=== PATIENT | male | born 1950 | race Caucasian/White ===

== ENCOUNTER 2023-01-03 01:47 | Emergency (ER) | payer OTHER ==
[~2023-01-03] VITALS: Ht 177.8 cm; Wt 74.8 kg
[2023-01-03 02:25] LABS: BASOPHILS ABSOLUTE AUTO 0.18 K/mm3 (0.00-0.23); BASOPHILS PERCENT AUTO 1 % (0-2); EOSINOPHILS ABSOLUTE AUTO 0.19 K/mm3 (0.00-0.68); EOSINOPHILS PERCENT AUTO 1 % (0-6); Hematocrit 39.6 % (37.0-53.0); Hemoglobin 12.6 g/dL (13.5-17.5); IMMATURE GRAN ABSOLUTE AUTO 0.33 K/mm3 (0.00-0.10); IMMATURE GRAN PERCENT AUTO 1 % (0-1); LYMPHOCYTES ABSOLUTE AUTO 2.08 K/mm3 (0.84-5.20); LYMPHOCYTES PERCENT AUTO 6 % (21-46); MONOCYTES ABSOLUTE AUTO 0.97 K/mm3 (0.16-1.47); MONOCYTES PERCENT AUTO 3 % (4-13); Mean Corpuscular HGB 32.1 pg (26.0-34.0); Mean Corpuscular HGB Conc 31.8 g/dL (31.5-36.5); Mean Corpuscular Volume 101 fL (80-100); Mean Platelet Volume 9.8 fL (9.1-12.4); NEUTROPHILS ABSOLUTE AUTO 31.43 K/mm3 (1.96-9.15); NEUTROPHILS PERCENT AUTO 89 % (41-73); Platelet Count 277 K/mm3 (150-400); RDW Coefficient Variation 15.8 % (11.7-14.2); RDW Standard Deviation 58.4 fL (35.1-46.3); Red Blood Cell Count 3.92 M/mm3 (4.30-5.90); White Blood Cell Count 35.18 K/mm3 (4.00-11.30)
[2023-01-03 02:32] LABS: Albumin, Blood 3.5 g/dL (3.4-5.0); Albumin/Globulin Ratio 0.8 (0.8-1.8); Bilirubin, Total 0.2 mg/dL (0.1-1.0); Bun/Creatinine Ratio 18.9 (12.0-20.0); Calcium, Blood 9.2 mg/dL (8.5-10.1); Creatinine, Blood 0.95 mg/dL (0.60-1.20); Globulin, Blood 4.5 g/dL (2.2-4.0)
[2023-01-03 03:27] LABS: Bicarbonate Venous 31.9 mmol/L (24.0-30.0); PCO2 Venous 71.7 mmHg (38-42); pH Blood Venous 7.32 (7.34-7.37)
[2023-01-03 03:27] LABS: Magnesium, Blood 2.1 mg/dL (1.6-2.4); Phosphorus, Blood 2.3 mg/dL (2.5-4.9); Thyroid Stimulating Hormone 23.4 uIU/mL (0.360-4.800)
[2023-01-03 05:31] VITALS: BP 130/62
== END 2023-01-03 05:45 | disposition left against medical advice (07) ==
LOC: ER 01:47
PROVIDERS: Emergency Medicine
DX: J15.9 Unspecified bacterial pneumonia (principal); R79.1 Abnormal coagulation profile; E86.0 Dehydration; D72.829 Elevated white blood cell count, unspecified; F17.200 Nicotine dependence, unspecified, uncomplicated; Z59.00 Homelessness unspecified; C34.90 Malignant neoplasm of unspecified part of unspecified bronchus or lung
CPT/HCPCS: 71046; 71260; 80053; 82803; 83605; 83735; 84100; 84443; 84484; 85025; 85379; 93005; 93010; 94640; 94664; 96365; 99284-25; J0696; J7030; Q9967

== ENCOUNTER 2023-01-03 06:01 | Emergency (ER) | payer OTHER | END 2023-01-03 06:19 | disposition left against medical advice (07) | LOC: ER 06:01 | DX: R06.00 Dyspnea, unspecified (principal); Z53.21 Procedure and treatment not carried out due to patient leaving prior to being seen by health care provider | CPT/HCPCS: 99281 ==

== ENCOUNTER 2023-01-03 17:14 | Emergency (ER) | payer OTHER | END 2023-01-03 19:58 | disposition left against medical advice (07) | LOC: ER 17:14 | DX: R06.00 Dyspnea, unspecified (principal); Z53.29 Procedure and treatment not carried out because of patient's decision for other reasons | CPT/HCPCS: 99281 ==

== ENCOUNTER 2023-01-03 23:26 | Emergency (ER) | payer OTHER ==
[~2023-01-03] VITALS: Ht 177.8 cm; Wt 72.6 kg
[2023-01-03 23:48] VITALS: BP 122/69
== END 2023-01-04 07:20 | disposition home or self-care (01) ==
LOC: ER 23:26
DX: S63.91XA Sprain of unspecified part of right wrist and hand, initial encounter (principal); W01.10XA Fall on same level from slipping, tripping and stumbling with subsequent striking against unspecified object, initial encounter
CPT/HCPCS: 73130; 99283-25

== ENCOUNTER 2023-01-07 14:45 | Observation (INO) | payer OTHER ==
[~2023-01-07] VITALS: Ht 177.8 cm; Wt 58.0 kg
[2023-01-07 18:47] LABS: Hematocrit 36.9 % (37.0-53.0); Hemoglobin 11.5 g/dL (13.5-17.5); Mean Corpuscular HGB 31.9 pg (26.0-34.0); Mean Corpuscular HGB Conc 31.2 g/dL (31.5-36.5); Mean Corpuscular Volume 103 fL (80-100); Mean Platelet Volume 9.3 fL (9.1-12.4); Platelet Count 217 K/mm3 (150-400); RDW Coefficient Variation 16.2 % (11.7-14.2); RDW Standard Deviation 61.7 fL (35.1-46.3); White Blood Cell Count 38.89 K/mm3 (4.00-11.30)
[2023-01-07 19:24] LABS: Influenza A, PCR NEGATIVE (NEGATIVE); Influenza B, PCR NEGATIVE (NEGATIVE); Resp Syncytial Virus, PCR NEGATIVE (NEGATIVE); SARS-Cov-2 (COVID-19) PCR, MMC NEGATIVE (NEGATIVE)
[2023-01-07 19:33] LABS: BASOPHILS PERCENT MAN 0 % (0-2); EOSINOPHILS ABSOLUTE MAN 0.38 K/mm3 (0.00-0.68); EOSINOPHILS PERCENT MAN 1 % (0-6); LYMPHOCYTES ABSOLUTE MAN 3.88 K/mm3 (0.84-5.20); LYMPHOCYTES PERCENT MAN 10 % (21-46); MONOCYTES ABSOLUTE MAN 1.94 K/mm3 (0.16-1.47); MONOCYTES PERCENT MAN 5 % (4-13); NEUTROPHILS ABSOLUTE MAN 32.66 K/mm3 (1.96-9.15); SEG NEUTROPHILS PERCENT MAN 84 % (41-73); TOTAL CELLS COUNTED 100
[2023-01-07 20:22] LABS: Magnesium, Blood 2.2 mg/dL (1.6-2.4)
[2023-01-07 20:26] LABS: Alanine Aminotransfer (ALT/SGP 15 U/L (12-78); Albumin, Blood 3.1 g/dL (3.4-5.0); Albumin/Globulin Ratio 0.8 (0.8-1.8); Alk Phos 211 U/L (50-136); Anion Gap Unable to Calculate mmol/L (6-16); Aspartate Aminotrans (AST/SGOT 15 U/L (12-37); Bilirubin, Total 0.2 mg/dL (0.1-1.0); Blood Urea Nitrogen 16 mg/dL (8-24); Bun/Creatinine Ratio 18.8 (12.0-20.0); CO2, Blood 40 mmol/L (21-32); Calcium, Blood 8.7 mg/dL (8.5-10.1); Chloride, Blood 104 mmol/L (98-108); Creatinine, Blood 0.85 mg/dL (0.60-1.20); Globulin, Blood 4.1 g/dL (2.2-4.0); Glomerular Filtration Rate 93 (60-); Glucose, Blood 127 mg/dL (70-99); Potassium, Blood 4.2 mmol/L (3.5-5.5); Sodium, Blood 142 mmol/L (136-145); Total Protein, Blood 7.2 g/dL (6.4-8.2)
[2023-01-07 22:48] LABS: Free Thyroxine 0.59 ng/dL (0.70-1.60)
[2023-01-07 23:48] LABS: Base Excess Venous 11.1 mmol/L; Bicarbonate Venous 33.7 mmol/L (24.0-30.0); PCO2 Venous 45.5 mmHg (38-42); pH Blood Venous 7.49 (7.34-7.37)
[2023-01-08 00:13] VITALS: BP 132/85
[2023-01-08 04:59] LABS: BASOPHILS ABSOLUTE AUTO 0.18 K/mm3 (0.00-0.23); BASOPHILS PERCENT AUTO 1 % (0-2); EOSINOPHILS ABSOLUTE AUTO 0.28 K/mm3 (0.00-0.68); EOSINOPHILS PERCENT AUTO 1 % (0-6); Hematocrit 37.9 % (37.0-53.0); Hemoglobin 12.1 g/dL (13.5-17.5); IMMATURE GRAN ABSOLUTE AUTO 0.55 K/mm3 (0.00-0.10); IMMATURE GRAN PERCENT AUTO 2 % (0-1); LYMPHOCYTES PERCENT AUTO 6 % (21-46); MONOCYTES PERCENT AUTO 3 % (4-13); Mean Corpuscular HGB 31.9 pg (26.0-34.0); Mean Corpuscular HGB Conc 31.9 g/dL (31.5-36.5); Mean Corpuscular Volume 100 fL (80-100); NEUTROPHILS ABSOLUTE AUTO 31.96 K/mm3 (1.96-9.15); NEUTROPHILS PERCENT AUTO 88 % (41-73); Platelet Count 232 K/mm3 (150-400); RDW Coefficient Variation 16.2 % (11.7-14.2); RDW Standard Deviation 59.7 fL (35.1-46.3); Red Blood Cell Count 3.79 M/mm3 (4.30-5.90); White Blood Cell Count 36.27 K/mm3 (4.00-11.30)
[2023-01-08 05:31] LABS: Albumin, Blood 3.2 g/dL (3.4-5.0); Albumin/Globulin Ratio 0.8 (0.8-1.8); Bilirubin, Total 0.2 mg/dL (0.1-1.0); Bun/Creatinine Ratio 19.8 (12.0-20.0); Calcium, Blood 8.8 mg/dL (8.5-10.1); Creatinine, Blood 0.86 mg/dL (0.60-1.20); Globulin, Blood 4.2 g/dL (2.2-4.0); Magnesium, Blood 2.3 mg/dL (1.6-2.4); Potassium, Blood 4.5 mmol/L (3.5-5.5); Total Protein, Blood 7.4 g/dL (6.4-8.2)
--- NOTE | 2023-01-08 06:03 | NUR ---
SHIFT SUMMARY 72 YR M ADMITTED ON 01/07/23 OR PNA. FULL CODE. NO ACUTE CHANGES THIS SHIFT. PT WAS ADMITTED TO THIS FLOOR JUST BEFORE MIDNIGHT AND HE HAS SLEPT VERY LITTLE SINCE THEN. HE IS GRUMPY WITH STAFF AND CALLED ONE OF THE ADJUNCT TEACHER'S INAPPROPRIATE NAMES. HE STATED THAT WE ARE ALL STUPID AND HAVE NO IDEA WHAT WE ARE DOING. HE HAS ASKED SEVERAL TIMES ABOUT WHAT IS FOR BREAKFAST AND THEN STATES THAT HE IS LEAVING IN THE MORNING ANYWAY. HE REFUSED HIS 6 A.M. THYROID MED STATING THAT HE DOES NOT NEED IT. HE TRIED TO REFUSE THIS MORNINGS LAB DRAW BUT THIS NURSE WAS ABLE TO CONVINCE HIM TO ALLOW IT BY EXPLAINING THAT THIS IS WHERE THE DOC GETS THE INFO HE NEEDS TO TREAT HIM. HE LIKES TO AMBULATE IN THE HALLWAY BUT NEEDS TO BE WATCHED HE ALMOST WENT IN TO ANOTHER PT'S ROOM BY [place]IST[place]. PT C/O HEADACHE AND GIVEN TYLENOL PER EMAR. HE STATED THAT IT HELPED TAKE THE PAIN AWAY.
[2023-01-08 07:31] VITALS: BP 114/52
--- NOTE | 2023-01-08 13:01 | NUR ---
PATIENTCONTINUES TO WANFER HALLS, COUGHING AND WALKING INTO ROOMS, PATIENT REMINDED NOT TO GO DOWN THE SCU OR GO INTO ROOMS PATIETN COMPLIANT. PATIENT CONITNUES TO REFUSE MEDICATIONS BUT AGREES TO TYLENOL, PALLIATIVE CARE RN ROUNDED, AGAIN PATIENT EDUCATED THE NEED FOR TREATMENT AND REFUSES MEDICATIONS. PATIENT AMBULATING HALLS RESP INCREASED COUGHING CONGESTION, PATIENT IS A FULL CODE, PSYCHOLOGIST EXPERIMENTAL AWARE, PALLIATIVE AWARE, PATIETN CONITUES TO BE PLEASANT, ONCE REDIRECTED EDUCATED AND RESTRICTED PATIENT BECOMES AMGRY SWEARING AT STAFF, PATIENT UP IN HALLS NOW
--- NOTE | 2023-01-08 15:17 | NUR ---
Met Mr. Jayant Perez Bethanyerasmo, "Chris" in the hallway this morning. Chris is confused and not sure where he is suppose to be. This RN met Chris yesterday when he was lost on 1st floor. This RN discovered Chris was suppose to be in the Emergency Dept and he had wandered off. Escorted Chris back to the ED lobby and checked in with lottery clerk to ensure he was still in line to be seen. ED report clerk confirmed Chris was still in line. When this RN saw Chris in the good this morning, he had no recolection of our meeting yesterday. Chris asked where he was suppose to be. He is admitted to room 356. Chris is confused. He is able to state his name. However, he can NOT spell his name. States he is from [place]. He does NOT recall what state or town he is currently in. He is aware he is in the hospital. Pt has audible ins/exp wheeze from 5 feet away. Labored respirations. Dyspnea score is 5/7. Very fatigued. Unstable. Difficulty following directions. He is agreeable to riding in a wheelchair back to his room. Pt reports hand and shoulder pain, asked for Tylenol. Chris did not place a numerical value on his pain. FLACC scale is 4/10. Once back in his room Chris is agreeable to Tylenol. Primary RN offered Prednisone and a probiotic. Pt refused. Education provided on the benefit of prednisone for his breathing, lung function. Chris not able to repeat what the purpose of prednisone is, just a blank stare. Asked if he had ever taken prednisone or any other steroid, he answered "no". Pt tucked in to bed. Offered a warm blanket, which he politely accepted. Apx 5 minutes later, Primary RN and this PC RN were talking in the hallway when Chris appeared behind this RN. He declined needing anything. Offered pt a snack and escorted him back to his room. Estimate PPS 60% High risk for falls and injury. Very high risk for readmission.
--- NOTE | 2023-01-08 15:59 | NUR ---
Chris wandered the halls on 1st floor in a hospital gown. He brought his coffee cup from his room to the cafeteria. This PC RN attempted to take coffee cup, he was agreeable when offered fresh coffee in a new cup. Chris appeared to be searching for something. He wasn't able to communicate what he was after. Knowing pt's diet from previous interaction, offered pt soup. Chris agreed he was hungry and accepted beef noodle soup. He declined wanting to go back to his room. Assisted pt to a table to eat. This RN contacted Dr. Doyle to express concern that Chris is likely to slip through the cracks. Dr. Doyle agreeable to ordering a cognative study. A short time later, This PC RN heard talking by the elevators on 3rd floor. Someone stated, "You need to stay in your room or sign this paper to leave." This PC RN realized it was Chris to whom they were talking to when PC RNIra said security was helping a shannon get dressed by the elevator. Chris was not in his room when this PC RN went to check on him. His Priamary RN said he had discharged. Will be notifying APS of concern for pt being at risk for exposure to the elements and his poor memory recall.
--- NOTE | 2023-01-08 16:47 | NUR ---
1450 PATIENT LEFT AMA, ESCORTED BY SECURITY, PATIENT REFUSING TO STAY ON THE THIRD FLOOR, PATIENT EDUCATED MANY TIMES TO NOT GO IN OTHER PATIENTS ROOM, PATIENT BECOMES ANGRY DUE TO THE RESTRICTIONS, SWEARING AT STAFF, REFUSING ALL MEDICATIONS. PATIENT EDUCATED ON THE NEED FOR TREATMENT AND TAKING MEDICATION, BY PALLIATIVE, SECURITY, , SALES REP [employer], AND THIS NURSE. PATIENT COUGHING SPUTUMN IN HANDS HAND WHILE WALKING THROUGH THE HALLS, PATIENT REFUSES TO WEAR A MASK OR GLOVES, PATIENT REFUSES TO BLOW HIS NOSE. PATIENT IS UNABLE TO BE REDIREDTED OR CONSOLDE ON PROTOCOLS AND THE NEED FOR TREAMENT, PATIENT LEFT AMA, AMA PAPER SIGNED, DR YEAGER
== END 2023-01-08 14:56 | disposition left against medical advice (07) ==
LOC: ER 14:45 → MEDS 14:46
PROVIDERS: Emergency Medicine; Student in an Organized Health Care Education/Training Program; ADMIT Student in an Organized Health Care Education/Training Program
DX: J44.1 Chronic obstructive pulmonary disease with (acute) exacerbation (principal); E03.9 Hypothyroidism, unspecified; Z59.00 Homelessness unspecified; F17.210 Nicotine dependence, cigarettes, uncomplicated; G93.41 Metabolic encephalopathy; C34.90 Malignant neoplasm of unspecified part of unspecified bronchus or lung; Z20.822 Contact with and (suspected) exposure to COVID-19
CPT/HCPCS: 0241U; 36415; 70450; 71046; 80053; 82803; 83605; 83735; 83880; 84145; 84439; 84443; 84484; 85025; 87040; 93005; 93010; 94760; 96365; 96375; 99285-25; A9270; G0378; J0456; J0696; J7050

== ENCOUNTER 2023-01-08 21:02 | Emergency (ER) | payer OTHER ==
[~2023-01-08] VITALS: Ht 185.4 cm; Wt 68.0 kg
[2023-01-08 21:08] VITALS: BP 153/78
== END 2023-01-08 21:58 | disposition home or self-care (01) ==
LOC: ER 21:02
DX: J44.0 Chronic obstructive pulmonary disease with (acute) lower respiratory infection (principal); J18.9 Pneumonia, unspecified organism; J44.1 Chronic obstructive pulmonary disease with (acute) exacerbation
CPT/HCPCS: 93005; 93010; 99283-25

== ENCOUNTER 2023-01-09 08:37 | Emergency (ER) | payer OTHER ==
[~2023-01-09] VITALS: Ht 172.7 cm; Wt 63.5 kg
[2023-01-09 09:20] VITALS: BP 149/68
== END 2023-01-09 09:23 | disposition home or self-care (01) ==
LOC: ER 08:37
DX: Z00.00 Encounter for general adult medical examination without abnormal findings (principal); M79.602 Pain in left arm; Z59.00 Homelessness unspecified
CPT/HCPCS: 99282

== ENCOUNTER 2023-01-09 13:10 | Emergency (ER) | payer OTHER ==
[~2023-01-09] VITALS: Ht 177.8 cm; Wt 73.5 kg
[2023-01-09 13:42] VITALS: BP 162/86
== END 2023-01-09 13:53 | disposition home or self-care (01) ==
LOC: ER 13:10
DX: M79.602 Pain in left arm (principal); Z59.00 Homelessness unspecified
CPT/HCPCS: 99282

== ENCOUNTER 2023-01-09 15:10 | Emergency (ER) | payer OTHER ==
[~2023-01-09] VITALS: Ht 172.7 cm; Wt 59.0 kg
[2023-01-09 15:29] VITALS: BP 128/79
== END 2023-01-09 17:13 | disposition home or self-care (01) ==
LOC: ER 15:10
DX: J44.9 Chronic obstructive pulmonary disease, unspecified (principal); E03.9 Hypothyroidism, unspecified
CPT/HCPCS: 99283

== ENCOUNTER 2023-01-11 11:15 | Emergency (ER) | payer OTHER ==
[~2023-01-11] VITALS: Ht 170.2 cm; Wt 68.0 kg
[2023-01-11 11:20] VITALS: BP 133/68
== END 2023-01-11 11:28 | disposition home or self-care (01) ==
LOC: ER 11:15
DX: Z00.00 Encounter for general adult medical examination without abnormal findings (principal)
CPT/HCPCS: 99283

== ENCOUNTER 2023-01-11 17:17 | Emergency (ER) | payer OTHER ==
[~2023-01-11] VITALS: Ht 180.3 cm; Wt 74.8 kg
[2023-01-11 18:02] VITALS: BP 133/73
== END 2023-01-11 18:20 | disposition home or self-care (01) ==
LOC: ER 17:17
DX: R29.6 Repeated falls (principal); Z59.00 Homelessness unspecified
CPT/HCPCS: 99283

== ENCOUNTER 2023-01-11 19:45 | Emergency (ER) | payer OTHER ==
[~2023-01-11] VITALS: Ht 177.8 cm; Wt 73.5 kg
[2023-01-11 21:09] LABS: BASOPHILS ABSOLUTE AUTO 0.18 K/mm3 (0.00-0.23); BASOPHILS PERCENT AUTO 0 % (0-2); EOSINOPHILS ABSOLUTE AUTO 0.07 K/mm3 (0.00-0.68); EOSINOPHILS PERCENT AUTO 0 % (0-6); Hematocrit 38.5 % (37.0-53.0); Hemoglobin 12.1 g/dL (13.5-17.5); IMMATURE GRAN ABSOLUTE AUTO 0.66 K/mm3 (0.00-0.10); IMMATURE GRAN PERCENT AUTO 1 % (0-1); LYMPHOCYTES PERCENT AUTO 5 % (21-46); MONOCYTES ABSOLUTE AUTO 1.42 K/mm3 (0.16-1.47); MONOCYTES PERCENT AUTO 3 % (4-13); Mean Corpuscular HGB 32.1 pg (26.0-34.0); Mean Corpuscular HGB Conc 31.4 g/dL (31.5-36.5); Mean Corpuscular Volume 102 fL (80-100); Mean Platelet Volume 9.1 fL (9.1-12.4); NEUTROPHILS ABSOLUTE AUTO 41.08 K/mm3 (1.96-9.15); NEUTROPHILS PERCENT AUTO 90 % (41-73); Platelet Count 242 K/mm3 (150-400); RDW Coefficient Variation 16.4 % (11.7-14.2); RDW Standard Deviation 61.3 fL (35.1-46.3); Red Blood Cell Count 3.77 M/mm3 (4.30-5.90); White Blood Cell Count 45.91 K/mm3 (4.00-11.30)
[2023-01-11 21:31] LABS: Albumin, Blood 3.6 g/dL (3.4-5.0); Albumin/Globulin Ratio 0.9 (0.8-1.8); Bilirubin, Total 0.2 mg/dL (0.1-1.0); Bun/Creatinine Ratio 24.8 (12.0-20.0); Creatinine, Blood 0.93 mg/dL (0.60-1.20); Globulin, Blood 4.1 g/dL (2.2-4.0); Potassium, Blood 4.7 mmol/L (3.5-5.5); Total Protein, Blood 7.7 g/dL (6.4-8.2)
[2023-01-12 01:06] LABS: Influenza A, PCR NEGATIVE (NEGATIVE); Influenza B, PCR NEGATIVE (NEGATIVE); Resp Syncytial Virus, PCR NEGATIVE (NEGATIVE); SARS-Cov-2 (COVID-19) PCR, MMC NEGATIVE (NEGATIVE)
[2023-01-12 05:14] LABS: Base Excess Venous 12.3 mmol/L; Bicarbonate Venous 33.7 mmol/L (24.0-30.0); PCO2 Venous 62.6 mmHg (38-42); pH Blood Venous 7.38 (7.34-7.37)
[2023-01-12 14:25] LABS: Source, Urine Clean Catch
[2023-01-12 14:29] LABS: Appearance, Urine Clear (Clear); Bilirubin, Urine Neg (Neg); Blood, Urine Neg (Neg); Color, Urine Pale Yellow (P-Yellow); Glucose Qualitative, Urine Neg (Neg); Ketones, Urine Neg (Neg); Leukocyte Esterase, Urine Neg (Neg); Nitrite, Urine Neg (Neg); Protein, Urine Neg (Neg); Urobilinogen, Urine NORM (Normal)
[2023-01-12 19:31] VITALS: BP 141/80
== END 2023-01-13 09:28 | disposition left against medical advice (07) ==
LOC: ER 19:45
PROVIDERS: Emergency Medicine; Student in an Organized Health Care Education/Training Program
DX: F03.90 Unspecified dementia, unspecified severity, without behavioral disturbance, psychotic disturbance, mood disturbance, and anxiety (principal); C34.90 Malignant neoplasm of unspecified part of unspecified bronchus or lung; R45.1 Restlessness and agitation; E46 Unspecified protein-calorie malnutrition; Z68.23 Body mass index [BMI] 23.0-23.9, adult; Z11.52 Encounter for screening for COVID-19; Z20.822 Contact with and (suspected) exposure to COVID-19
CPT/HCPCS: 0241U; 36415; 71046; 80053; 81003; 82803; 84145; 85025; 93005; 93010; 94644; 94645; 94664; 96372; 99285-25; J1200; J1630; J2060

== ENCOUNTER 2023-01-13 16:58 | Emergency (ER) | payer OTHER ==
[~2023-01-13] VITALS: Ht 170.2 cm; Wt 54.4 kg
[2023-01-13 17:14] LABS: BASOPHILS ABSOLUTE AUTO 0.13 K/mm3 (0.00-0.23); BASOPHILS PERCENT AUTO 0 % (0-2); EOSINOPHILS ABSOLUTE AUTO 0.03 K/mm3 (0.00-0.68); EOSINOPHILS PERCENT AUTO 0 % (0-6); Hematocrit 38.3 % (37.0-53.0); Hemoglobin 12.4 g/dL (13.5-17.5); IMMATURE GRAN ABSOLUTE AUTO 0.68 K/mm3 (0.00-0.10); IMMATURE GRAN PERCENT AUTO 2 % (0-1); LYMPHOCYTES ABSOLUTE AUTO 1.91 K/mm3 (0.84-5.20); LYMPHOCYTES PERCENT AUTO 5 % (21-46); MONOCYTES ABSOLUTE AUTO 1.21 K/mm3 (0.16-1.47); MONOCYTES PERCENT AUTO 3 % (4-13); Mean Corpuscular HGB 32.6 pg (26.0-34.0); Mean Corpuscular HGB Conc 32.4 g/dL (31.5-36.5); Mean Corpuscular Volume 101 fL (80-100); Mean Platelet Volume 9.4 fL (9.1-12.4); NEUTROPHILS ABSOLUTE AUTO 35.69 K/mm3 (1.96-9.15); NEUTROPHILS PERCENT AUTO 90 % (41-73); Platelet Count 196 K/mm3 (150-400); RDW Coefficient Variation 16.1 % (11.7-14.2); RDW Standard Deviation 59.6 fL (35.1-46.3); White Blood Cell Count 39.65 K/mm3 (4.00-11.30)
[2023-01-13 17:15] VITALS: BP 114/67
[2023-01-13 17:57] LABS: Albumin, Blood 3.3 g/dL (3.4-5.0); Albumin/Globulin Ratio 0.8 (0.8-1.8); Bilirubin, Total 0.3 mg/dL (0.1-1.0); Bun/Creatinine Ratio 22.4 (12.0-20.0); Calcium, Blood 8.9 mg/dL (8.5-10.1); Creatinine, Blood 0.85 mg/dL (0.60-1.20); Potassium, Blood 4.5 mmol/L (3.5-5.5); Total Protein, Blood 7.3 g/dL (6.4-8.2)
== END 2023-01-13 17:35 | disposition left against medical advice (07) ==
LOC: ER 16:58
PROVIDERS: Emergency Medicine
DX: I48.91 Unspecified atrial fibrillation (principal); C34.90 Malignant neoplasm of unspecified part of unspecified bronchus or lung
CPT/HCPCS: 71045; 80053; 84484; 85025; 93005; 93010; 99285-25

== ENCOUNTER 2023-01-13 20:01 | Emergency (ER) | payer OTHER ==
[~2023-01-13] VITALS: Ht 177.8 cm; Wt 73.5 kg
[2023-01-13 20:06] VITALS: BP 118/74
== END 2023-01-13 21:08 | disposition left against medical advice (07) ==
LOC: ER 20:01
DX: Z53.21 Procedure and treatment not carried out due to patient leaving prior to being seen by health care provider (principal)
CPT/HCPCS: 93005; 93010; 99281

== ENCOUNTER 2023-01-14 08:52 | Emergency (ER) | payer OTHER ==
[~2023-01-14] VITALS: Ht 177.8 cm; Wt 74.8 kg
[2023-01-14 09:50] VITALS: BP 125/70
== END 2023-01-14 09:52 | disposition home or self-care (01) ==
LOC: ER 08:52
DX: M25.512 Pain in left shoulder (principal)
CPT/HCPCS: 99283

== ENCOUNTER 2023-01-14 18:36 | Emergency (ER) | payer OTHER ==
[~2023-01-14] VITALS: Ht 172.7 cm; Wt 74.8 kg
[2023-01-14 20:19] VITALS: BP 118/98
== END 2023-01-14 20:25 | disposition home or self-care (01) ==
LOC: ER 18:36
DX: M79.641 Pain in right hand (principal); W18.30XA Fall on same level, unspecified, initial encounter
CPT/HCPCS: 99283

== ENCOUNTER 2023-01-15 11:04 | Emergency (ER) | payer OTHER | END 2023-01-15 11:27 | disposition left against medical advice (07) | LOC: ER 11:04 | DX: R53.81 Other malaise (principal); Z53.29 Procedure and treatment not carried out because of patient's decision for other reasons; R07.9 Chest pain, unspecified | CPT/HCPCS: 99281 ==

== ENCOUNTER 2023-01-15 15:28 | Emergency (ER) | payer OTHER ==
[~2023-01-15] VITALS: Ht 177.8 cm; Wt 72.6 kg
[2023-01-15 15:47] VITALS: BP 129/74
== END 2023-01-15 16:08 | disposition left against medical advice (07) ==
LOC: ER 15:28
DX: R07.9 Chest pain, unspecified (principal)
CPT/HCPCS: 99281

== ENCOUNTER 2023-01-15 18:04 | Emergency (ER) | payer OTHER ==
[~2023-01-15] VITALS: Ht 177.8 cm; Wt 73.5 kg
[2023-01-15 18:41] VITALS: BP 121/70
[2023-01-15 19:06] LABS: Hematocrit 37.8 % (37.0-53.0); Hemoglobin 12.1 g/dL (13.5-17.5); Mean Corpuscular HGB 31.8 pg (26.0-34.0); Mean Corpuscular Volume 99 fL (80-100); Mean Platelet Volume 9.2 fL (9.1-12.4); Platelet Count 228 K/mm3 (150-400); RDW Coefficient Variation 16.4 % (11.7-14.2); RDW Standard Deviation 59.7 fL (35.1-46.3); Red Blood Cell Count 3.81 M/mm3 (4.30-5.90); White Blood Cell Count 48.13 K/mm3 (4.00-11.30)
[2023-01-15 19:19] LABS: Albumin, Blood 3.5 g/dL (3.4-5.0); Albumin/Globulin Ratio 0.9 (0.8-1.8); Bilirubin, Total 0.4 mg/dL (0.1-1.0); Bun/Creatinine Ratio 21.3 (12.0-20.0); Calcium, Blood 8.9 mg/dL (8.5-10.1); Creatinine, Blood 0.75 mg/dL (0.60-1.20); Potassium, Blood 4.6 mmol/L (3.5-5.5); Total Protein, Blood 7.5 g/dL (6.4-8.2)
[2023-01-15 20:05] LABS: BASOPHILS PERCENT MAN 0 % (0-2); EOSINOPHILS PERCENT MAN 0 % (0-6); LYMPHOCYTES ABSOLUTE MAN 1.92 K/mm3 (0.84-5.20); LYMPHOCYTES PERCENT MAN 4 % (21-46); MONOCYTES ABSOLUTE MAN 2.88 K/mm3 (0.16-1.47); MONOCYTES PERCENT MAN 6 % (4-13); NEUTROPHILS ABSOLUTE MAN 43.31 K/mm3 (1.96-9.15); SEG NEUTROPHILS PERCENT MAN 90 % (41-73); TOTAL CELLS COUNTED 100
== END 2023-01-15 20:38 | disposition left against medical advice (07) ==
LOC: ER 18:04
PROVIDERS: Physician Assistant
DX: R29.6 Repeated falls (principal); Z53.29 Procedure and treatment not carried out because of patient's decision for other reasons
CPT/HCPCS: 80053; 85025; 99281